=== PATIENT | female | born 1980 | race Caucasian/White ===

== ENCOUNTER 2018-08-04 16:01 | Emergency (ER) | payer MEDICAID ==
[2018-08-04 17:03] LABS: URINE SOURCE CLEAN C
[2018-08-04 17:09] LABS: URINE BILIRUBIN NEGATIVE (NEGATIVE); URINE BLOOD LARGE (NEGATIVE); URINE GLUCOSE (UA) NEGATIVE (NEGATIVE); URINE KETONE NEGATIVE (NEGATIVE); URINE LEUKOCYTE ESTERASE NEGATIVE (NEGATIVE); URINE MICROSCOPIC INDICATED? YES; URINE NITRATE NEGATIVE (NEGATIVE); URINE PH 5.5 (4.6 - 8.0); URINE PROTEIN NEGATIVE (NEGATIVE); URINE UROBILINOGEN 0.2 E.U./dL (0.2 - 1.0)
[2018-08-04 17:12] LABS: URINE CLARITY HAZY (CLEAR); URINE COLOR YELLOW
[2018-08-04 17:13] LABS: URINE BACTERIA 3+ /hpf (NONE SEEN); URINE EPITHELIAL CELLS MODERATE /lpf (FEW); URINE WBC 0-2 /hpf (0-5)
[2018-08-04 17:27] LABS: HEMATOCRIT 37.8 % (41.0-60); HEMOGLOBIN 12.7 gm/dL (12-16); LYMPHOCYTE ABSOLUTE 0.7 Th/cmm (1.5-3.0); MEAN CELL VOLUME 95.9 fl (81-100); MEAN CORPUSCULAR HEMOGLOBIN 32.3 pg (27.0-31.0); MEAN CORPUSCULAR HGB CONC 33.6 pg (28.0-36.0); MEAN PLATELET VOLUME 9.3 fl; MONOCYTE ABSOLUTE 0.6 Th/cmm (0.3-1.0); NEUTROPHILE ABSOLUTE 1.5 Th/cmm (1.8-8.0); PLATELET COUNT 119 Th/cmm (150-400); RED BLOOD COUNT 3.94 Mil/cmm (3.80-5.10); RED CELL DISTRIBUTION WIDTH 12.1 % (11.5-20.0)
[2018-08-04 17:40] LABS: WHITE BLOOD COUNT 2.8 Th/cmm (4.8-10.8)
[2018-08-04 17:43] LABS: ALB/GLOB RATIO 1.5 (1.0-1.8); ALBUMIN 4.3 gm/dL (3.7-5.3); ALKALINE PHOSPHATASE 31 U/L (34-104); ANION GAP 10.7 (7.0-16.0); BILIRUBIN,TOTAL 0.3 mg/dL (0.3-1.0); BUN - UREA NITROGEN 10 mg/dL (7-25); CALCIUM SERUM 9.5 mg/dL (8.6-10.3); CARBON DIOXIDE 28.2 mEq/L (21.0-31.0); CHLORIDE 106 mEq/L (98-107); CREATININE - SERUM 0.6 mg/dL (0.6-1.2); GFR AFRICAN-AMERICAN > 60.0 ml/min (>90); GFR NON AFRICAN-AMERICAN > 60.0 ml/min; GLUCOSE 65 mg/dL (70-105); POTASSIUM SERUM 3.9 mEq/L (3.5-5.1); SGOT 15 U/L (13-39); SGPT/ALT 12 U/L (7-52); SODIUM SERUM 141 mEq/L (136-145); TOTAL PROTEIN,SERUM 7.2 gm/dL (6.0-8.3)
[2018-08-04] MEDS: Lactated Ringer 1,000 ML IV ONE (17:48)
[2018-08-04 18:07] LABS: BAND NEUTROPHILE 3 % (0-10); LYMPHOCYTE 25 % (20-50); MONOCYTE 15 % (2-10); NEUTROPHILS 57 % (40-80)
--- NOTE | 2018-08-04 19:55 | ED Physician Chart ---
ED Chief Complaint/HPI - Patient Information Date Seen:: 08/04/18 Time Seen:: 16:26 Chief Complaint:: pelvic & lower abd pain History of Present Illness:: pelvic & lower abd pain in a patient who was told to follow up with a refrigerator mover and never did. No N, V, D, C. No abnormal vaginal bleeding. Allergies:: Allergies Allergy/AdvReac Type Severity Reaction Status Date / Time amoxicillin Allergy Verified 08/04/18 16:26 Penicillins [PCN] Allergy Verified 08/04/18 16:26 Sulfa (Sulfonamide Allergy Verified 08/04/18 16:26 Antibiotics) Vitals:: Vital Signs - 8 hr 08/04/18 16:26 Temp 98.9 F HR 90 RR 18 BP 107/64 O2 Sat % 97 Historian:: Patient Review:: Nurse's Note Reviewed ED Review of Systems - Review of Systems General/Constitutional: No fever, No chills, No weight loss, No weakness, No diaphoresis, No edema, No loss of appetite Skin: No skin lesions, No rash, No bruising Head: No headache, No light-headedness Eyes: No loss of vision, No pain, No diplopia ENT: No earache, No nasal drainage, No sore throat, No tinnitus Neck: No neck pain, No swelling, No thyromegaly, No stiffness, No mass noted Cardio Vascular: No chest pain, No palpitations, No PND, No orthopnea, No edema Pulmonary: No SOB, No cough, No sputum, No wheezing GI: No nausea, No vomiting, No diarrhea, Pain, No melena, No hematochezia, No constipation, No hematemesis G/U: No dysuria, No frequency, No hematuria Rd Lab Technician: No vaginal discharge, No abnormal vaginal bleed, No contraction Musculoskeletal: No bone or joint pain, No back pain, No muscle pain Endocrine: No polyuria, No polydipsia Psychiatric: No prior psych history, No depression, No anxiety, No suicidal ideation Hematopoietic: No bruising, No lymphadenopathy, Other (low white blood count ( has a events traffic controller)) Allergic/Immuno: No urticaria, No angioedema Neurological: No syncope, No focal symptoms, No weakness, No paresthesia, No headache, No seizure, No dizziness, No confusion, No vertigo ED Past Medical History - Past Medical History Obtainable: Yes Past Medical History: Other (low white blood count) Family Medical History - Family Member Father Hx Family Hypertension: Yes ED Physical Exam - Physical Examination General/Constitutional: Awake, Well-developed, well-nourished, Alert, No distress, GCS 15, Non-toxic appearing, Ambulatory Head: Atraumatic Eyes: Lids, conjuctiva normal, PERRL, EOMI Skin: Nl inspection, No rash, No skin lesions, No ecchymosis, Well hydrated, No lymphadenopathy ENMT: External ears, nose nl, Nasal exam nl, Lips, teeth, gums nl Neck: Nontender, Full ROM w/o pain, No JVD, No nuchal rigidity, No bruit, No mass, No stridor Respiratory: Nl effort/Exclusion, Clear to Auscultation, No Wheeze/Rhonchi/Rales Cardio Vascular: RRR, No murmur, gallop, rubs, NL S1 S2 GI: No organomegaly, No hernia, Normal BS's, Nondistended, No mass/bruits, No McBurney tenderness Other GI comments:: Possible mass felt in the RLQ. No peritoneal signs. Negative Rovsing's and Psoas sign. : No CVA tenderness Extremities: No tenderness or effusion, Full ROM, normal strength in all extremities, No edema, Normal digits & nails Neuro/Psych: Alert/oriented, Normal sensory exam, Normal motor strength, Judgement/insight normal, Mood normal, Normal gait, No focal deficits Misc: Normal back, No paraspinal tenderness ED Labs/Radiology/EKG Results - Lab Results Results: Laboratory Tests 08/04/18 08/04/18 08/04/18 16:25 16:48 17:10 WBC 2.8 L RBC 3.94 Hgb 12.7 Hct 37.8 L MCV 95.9 MCH 32.3 H MCHC Differential 33.6 RDW 12.1 Plt Count 119 L MPV 9.3 Add Manual Diff YES Band Neutrophils % 3 Neutrophils (Manual) 57 Lymphocytes 25 Monocytes 15 H Sodium Potassium Chloride Carbon Dioxide Anion Gap BUN Creatinine Est GFR ( Amer) Est GFR (Non-Af Amer) BUN/Creatinine Ratio Glucose Whole Bld Lactic Acid Calcium Total Bilirubin AST ALT Alkaline Phosphatase Total Protein Albumin Globulin Albumin/Globulin Ratio Urine Source CLEAN C Urine Color YELLOW Urine Clarity HAZY Urine pH 5.5 Ur Specific Falcon >= 1.030 Urine Protein NEGATIVE Urine Glucose (UA) NEGATIVE Urine Ketones NEGATIVE Urine Blood LARGE H Urine Nitrate NEGATIVE Urine Bilirubin NEGATIVE Urine Urobilinogen 0.2 Ur Leukocyte Esterase NEGATIVE Urine RBC 2-5 Urine WBC 0-2 Ur Epithelial Cells MODERATE Urine Bacteria 3+ H POC Ur Test Negative 08/04/18 08/04/18 17:10 17:10 WBC RBC Hgb Hct MCV MCH MCHC Differential RDW Plt Count MPV Add Manual Diff Band Neutrophils % Neutrophils (Manual) Lymphocytes Monocytes Sodium 141 Potassium 3.9 Chloride 106 Carbon Dioxide 28.2 Anion Gap 10.7 BUN 10 Creatinine 0.6 Est GFR ( Amer) > 60.0 Est GFR (Non-Af Amer) > 60.0 BUN/Creatinine Ratio 16.7 Glucose 65 L Whole Bld Lactic Acid 1.36 Calcium 9.5 Total Bilirubin 0.3 AST 15 ALT 12 Alkaline Phosphatase 31 L Total Protein 7.2 Albumin 4.3 Globulin 2.9 Albumin/Globulin Ratio 1.5 Urine Source Urine Color Urine Clarity Urine pH Ur Specific Falcon Urine Protein Urine Glucose (UA) Urine Ketones Urine Blood Urine Nitrate Urine Bilirubin Urine Urobilinogen Ur Leukocyte Esterase Urine RBC Urine WBC Ur Epithelial Cells Urine Bacteria POC Ur Test ED Assessment - Assessment General Assessment: ultrasound performed which revealed a right bladder diverticulum and an abnormal , thickened uterus. ED Septic Shock - . Is Septic Shock (SBP<90, OR Lactate>4 mmol\L) present?: No - <6hrs of presentation: Vital Signs: Vital Signs - 8 hr 08/04/18 16:26 Temp 98.9 F HR 90 RR 18 BP 107/64 O2 Sat % 97 ED Reassessment (Disposition) - Reassessment Reassessment Condition:: Improved - Diagnosis Diagnosis:: Abdominal pain Urinary tract infection Bladder diverticulum--need to see a urologist Hematuria--need to see a urologist Abnormal, thickened endometrium--need to see a refrigerator mover Low white blood count--need to see your events traffic controller. - Aftercare/Follow up Instructions Aftercare/Follow-Up Instructions:: Refer to Discharge Instructions Notes:: Bladder diverticulum--need to see a urologist Hematuria--need to see a urologist Abnormal, thickened endometrium--need to see a refrigerator mover Low white blood count--need to see your events traffic controller. Medication Prescribed:: Tylenol # 3 # 15 CURES REPORT RUN ON PATIENT--IS NEGATIVE. WAS PLACED IN CHART. Macrobid 100 mg po bid # 20 - Patient Disposition Discharge/Transfer:: Home Condition at Disposition:: Stable, Improved
--- NOTE | 2018-08-05 09:08 | Diagnostic Imaging Report ---
Ultrasound abdomen, Limited History: Lower pelvic pain, rule out appendicitis Comparison: Pelvic ultrasound same day Technique/procedure: Limited sonographic images of the right lower quadrant were obtained. Appendix is not visualized. IMPRESSION: The appendix was not visualized. If there is continued concern for acute appendicitis, CT examination is recommended for further assessment.
--- NOTE | 2018-08-05 09:11 | Diagnostic Imaging Report ---
Ultrasound pelvis HISTORY: Right lower quadrant pain, mass. LMP 06/28/2018. Beta-hCGs negative COMPARISON: Limited abdominal ultrasound the same day Technique: Longitudinal and transverse sonographic sector images of the pelvis were obtained transabdominally and transvaginally. FINDINGS: The uterus measures 8.1 x 3.9 x 4.8 cm. The endometrial echo complex measures 1.3 cm and demonstrates vascularity. The right ovary measures 5.0 x 2.8 cm. The left ovary measures 3.0 x 2.9 cm. Vascular flow to both ovaries is noted. Bilateral ovarian follicular cystic changes are noted. No free fluid in the pelvis. Incidentally noted is a diverticulum along the base of the urinary bladder. IMPRESSION: Mild prominence of the right ovary. Vascular flow to both ovaries is noted. Bilateral ovarian follicular cystic changes. Thickened endometrial echo complex with increased vascularity. Clinical correlation and further assessment of this finding is recommended. No evidence of free fluid in the pelvis. Posterior urinary bladder diverticulum incidentally noted. Given clinical history, consider further assessment CT examination of the abdomen and pelvis.
== END 2018-08-04 20:00 | disposition home or self-care (01) ==
LOC: ER 16:01
DX: N39.0 Urinary tract infection, site not specified (principal); N32.3 Diverticulum of bladder; D72.819 Decreased white blood cell count, unspecified; R93.89 Abnormal findings on diagnostic imaging of other specified body structures; Z88.0 Allergy status to penicillin; Z88.2 Allergy status to sulfonamides
CPT/HCPCS: 36415-UA; 76705-TC; 76830-TC; 76856-TC; 76857-TC; 80053-TC; 81001-TC; 81025-TC; 83605; 85007-TC; 85025-TC; 87086-90; Z7502

== ENCOUNTER 2018-11-03 10:20 | Emergency (ER) | payer MEDICAID ==
--- NOTE | 2018-11-03 10:58 | ED Physician Chart ---
ED Chief Complaint/HPI - Patient Information Date Seen:: 11/03/18 Time Seen:: 10:53 Chief Complaint:: rash History of Present Illness:: this is a 38 yo female with recurrent rash seen here twice before with the same rash over the head and shoulder. she denies fever, cough and chest congestion. she denies any recent new exposure to pets of food. Allergies:: Allergies Allergy/AdvReac Type Severity Reaction Status Date / Time amoxicillin Allergy Verified 10/15/18 08:59 Penicillins [PCN] Allergy Verified 10/15/18 08:59 Sulfa (Sulfonamide Allergy Verified 10/15/18 08:59 Antibiotics) Vitals:: Vital Signs - 8 hr 11/03/18 10:31 Temp 98.1 F HR 86 RR 16 BP 123/79 O2 Sat % 99 Historian:: Patient Review:: Nurse's Note Reviewed, Old Chart Reviewed ED Review of Systems - Review of Systems General/Constitutional: No fever, No chills, No weight loss, No weakness, No diaphoresis, No edema, No loss of appetite Skin: No skin lesions, Rash, No bruising Head: No headache, No light-headedness Eyes: No loss of vision, No pain, No diplopia ENT: No earache, No nasal drainage, No sore throat, No tinnitus Neck: No neck pain, No swelling, No thyromegaly, No stiffness, No mass noted Cardio Vascular: No chest pain, No palpitations, No PND, No orthopnea, No edema Pulmonary: No SOB, No cough, No sputum, No wheezing GI: No nausea, No vomiting, No diarrhea, No pain, No melena, No hematochezia, No constipation, No hematemesis G/U: No dysuria, No frequency, No hematuria Musculoskeletal: No bone or joint pain, No back pain, No muscle pain Endocrine: No polyuria, No polydipsia Psychiatric: No prior psych history, No depression, No anxiety, No suicidal ideation Hematopoietic: No bruising, No lymphadenopathy Allergic/Immuno: No urticaria, No angioedema Neurological: No syncope, No focal symptoms, No weakness, No paresthesia, No headache, No seizure, No dizziness, No confusion, No vertigo ED Past Medical History - Past Medical History Obtainable: Yes Past Medical History: No significant medical hx Family History: None Social History: Non Smoker, No Alcohol, No Drug Use, Employed Surgical History: other (EAR TUBE SURGERY, NOSE SURGERY) Psychiatricy History: None Family Medical History - Family Member Father History Unknown: Yes Hx Family Hypertension: Yes ED Physical Exam - Physical Examination General/Constitutional: Awake, Well-developed, well-nourished, Alert, No distress, GCS 15, Non-toxic appearing, Ambulatory Head: Atraumatic Eyes: Lids, conjuctiva normal, PERRL, EOMI Skin: Nl inspection, No rash (THERE IS A RASH OVER THE HEAD AND SHOULDERS ), No ecchymosis, Well hydrated, No lymphadenopathy Other Skin comments:: RASH OVER THE HEAD, SCALP AND SHOULDERS. ENMT: External ears, nose nl, Nasal exam nl, Lips, teeth, gums nl Neck: Nontender, Full ROM w/o pain, No JVD, No nuchal rigidity, No bruit, No mass, No stridor Respiratory: Nl effort/Exclusion, Clear to Auscultation, No Wheeze/Rhonchi/Rales Cardio Vascular: RRR, No murmur, gallop, rubs, NL S1 S2 GI: No tenderness/rebounding/guarding, No organomegaly, No hernia, Normal BS's, Nondistended, No mass/bruits, No McBurney tenderness : No CVA tenderness Extremities: No tenderness or effusion, Full ROM, normal strength in all extremities, No edema, Normal digits & nails Neuro/Psych: Alert/oriented, DTR's symmetric, Normal sensory exam, Normal motor strength, Judgement/insight normal, Mood normal, Normal gait, No focal deficits Misc: Normal back, No paraspinal tenderness ED Assessment - Assessment General Assessment: SCABIES- LIKE RASH OVER THE HEAD AND SHOULDERS ED Septic Shock - . Is Septic Shock (SBP<90, OR Lactate>4 mmol\L) present?: No - <6hrs of presentation: Vital Signs: Vital Signs - 8 hr 11/03/18 10:31 Temp 98.1 F HR 86 RR 16 BP 123/79 O2 Sat % 99 ED Reassessment (Disposition) - Reassessment Reassessment Condition:: Unchanged - Diagnosis Diagnosis:: RASH (SCABIES) - Aftercare/Follow up Instructions Aftercare/Follow-Up Instructions:: Counseled pt regarding lab results/diagnosis & need follow up, Refer to Discharge Instructions, Counseled pt & family regarding lab results/diagnosis & need follow up - Patient Disposition Discharge/Transfer:: Home Condition at Disposition:: Unchanged
== END 2018-11-03 11:36 | disposition home or self-care (01) ==
LOC: ER 10:20
DX: B86 Scabies (principal); R21 Rash and other nonspecific skin eruption; Z88.0 Allergy status to penicillin; Z88.2 Allergy status to sulfonamides
CPT/HCPCS: Z7502

== ENCOUNTER 2019-02-20 12:26 | Emergency (ER) | payer MEDICAID ==
--- NOTE | 2019-02-20 13:13 | ED Physician Chart ---
ED Chief Complaint/HPI - Patient Information Date Seen:: 02/20/19 Time Seen:: 12:55 Chief Complaint:: hand rash History of Present Illness:: this is a 38 yo female who is concerned about a new rash on her fingers that started 3 days ago. she denies rashes elsewhere on her body. she denies diabetes, hypertension and heart disease. Allergies:: Allergies Allergy/AdvReac Type Severity Reaction Status Date / Time amoxicillin Allergy Verified 10/15/18 08:59 Penicillins [PCN] Allergy Verified 10/15/18 08:59 Sulfa (Sulfonamide Allergy Verified 10/15/18 08:59 Antibiotics) Vitals:: Vital Signs - 8 hr 02/20/19 12:45 Temp 98.5 F HR 84 RR 18 BP 105/52 O2 Sat % 98 Historian:: Patient Review:: Nurse's Note Reviewed ED Review of Systems - Review of Systems General/Constitutional: No fever, No chills, No weight loss, No weakness, No diaphoresis, No edema, No loss of appetite Skin: Skin lesions (rash on the fingers of both hands), No skin lesions, No rash , No bruising Head: No headache, No light-headedness Eyes: No loss of vision, No pain, No diplopia ENT: No earache, No nasal drainage, No sore throat, No tinnitus Neck: No neck pain, No swelling, No thyromegaly, No stiffness, No mass noted Cardio Vascular: No chest pain, No palpitations, No PND, No orthopnea, No edema Pulmonary: No SOB, No cough, No sputum, No wheezing GI: No nausea, No vomiting, No diarrhea, No pain, No melena, No hematochezia, No constipation, No hematemesis G/U: No dysuria, No frequency, No hematuria Musculoskeletal: No bone or joint pain, No back pain, No muscle pain Endocrine: No polyuria, No polydipsia Psychiatric: No prior psych history, No depression, No anxiety, No suicidal ideation Hematopoietic: No bruising, No lymphadenopathy Allergic/Immuno: No urticaria, No angioedema Neurological: No syncope, No focal symptoms, No weakness, No paresthesia, No headache, No seizure, No dizziness, No confusion, No vertigo ED Past Medical History - Past Medical History Obtainable: Yes Past Medical History: No significant medical hx Family History: None Social History: Non Smoker, No Alcohol, No Drug Use, Employed Surgical History: None Psychiatricy History: None Medication: Reviewed Family Medical History - Family Member Father History Unknown: Yes Hx Family Hypertension: Yes ED Physical Exam - Physical Examination General/Constitutional: Awake, Well-developed, well-nourished, Alert, No distress, GCS 15, Non-toxic appearing, Ambulatory Head: Atraumatic Eyes: Lids, conjuctiva normal, PERRL, EOMI Skin: Nl inspection, No skin lesions, No ecchymosis, Well hydrated, No lymphadenopathy Other Skin comments:: rash on both hands on the fingers ENMT: External ears, nose nl, Nasal exam nl, Lips, teeth, gums nl Neck: Nontender, Full ROM w/o pain, No JVD, No nuchal rigidity, No bruit, No mass, No stridor Respiratory: Nl effort/Exclusion, Clear to Auscultation, No Wheeze/Rhonchi/Rales Cardio Vascular: RRR, No murmur, gallop, rubs, NL S1 S2 GI: No tenderness/rebounding/guarding, No organomegaly, No hernia, Normal BS's, Nondistended, No mass/bruits, No McBurney tenderness : No CVA tenderness Extremities: No tenderness or effusion, Full ROM, normal strength in all extremities, No edema, Normal digits & nails Neuro/Psych: Alert/oriented, DTR's symmetric, Normal sensory exam, Normal motor strength, Judgement/insight normal, Mood normal, Normal gait, No focal deficits Misc: Normal back, No paraspinal tenderness ED Assessment - Assessment General Assessment: fungal infection ED Septic Shock - . Is Septic Shock (SBP<90, OR Lactate>4 mmol\L) present?: No - <6hrs of presentation: Vital Signs: Vital Signs - 8 hr 02/20/19 12:45 Temp 98.5 F HR 84 RR 18 BP 105/52 O2 Sat % 98 ED Reassessment (Disposition) - Reassessment Reassessment Condition:: Unchanged - Diagnosis Diagnosis:: fungal infection of both hands - Aftercare/Follow up Instructions Aftercare/Follow-Up Instructions:: Counseled pt regarding lab results/diagnosis & need follow up, Refer to Discharge Instructions, Counseled pt & family regarding lab results/diagnosis & need follow up - Patient Disposition Discharge/Transfer:: Home Condition at Disposition:: Unchanged
== END 2019-02-20 13:30 | disposition home or self-care (01) ==
LOC: ER 12:26
DX: B35.2 Tinea manuum (principal); Z88.0 Allergy status to penicillin; Z88.1 Allergy status to other antibiotic agents; Z88.2 Allergy status to sulfonamides
CPT/HCPCS: Z7502

== ENCOUNTER 2019-03-05 14:00 | Emergency (ER) | payer MEDICAID ==
--- NOTE | 2019-03-05 14:39 | ED Physician Chart ---
ED Chief Complaint/HPI - Patient Information Date Seen:: 03/05/19 Time Seen:: 14:25 Chief Complaint:: sore throat History of Present Illness:: Patient's had sore throat, hoarseness and shortness of breath for 3 days. She also has diffuse abdominal pain. No vomiting. Has bilateral flank pain when she urinates. Allergies:: Allergies Allergy/AdvReac Type Severity Reaction Status Date / Time amoxicillin Allergy Verified 03/05/19 14:16 Penicillins [PCN] Allergy Verified 03/05/19 14:16 Sulfa (Sulfonamide Allergy Verified 03/05/19 14:16 Antibiotics) Vitals:: Vital Signs - 8 hr 03/05/19 14:17 Temp 98.8 F HR 84 RR 18 BP 107/63 O2 Sat % 98 Historian:: Patient Review:: Nurse's Note Reviewed ED Review of Systems - Review of Systems General/Constitutional: No fever, No chills Skin: No skin lesions Head: No headache Eyes: No loss of vision ENT: No earache, Sore throat Neck: No neck pain, No swelling Cardio Vascular: No chest pain Pulmonary: No SOB GI: No nausea, No vomiting, Pain G/U: Dysuria, Other (bilateral flank pain when she urinates) Musculoskeletal: No bone or joint pain Endocrine: No polyuria, No polydipsia Psychiatric: No prior psych history ED Past Medical History - Past Medical History Past Medical History: Other (anemia; patient was born prematurely. She is unsure of her weight. She had surgery as a baby for vomiting (? pyloric stenosis)) Family History: Cancer Social History: Smoker, No Alcohol, Other (smokes one cigaret per day) Surgical History: other (Probably) Psychiatricy History: None Family Medical History - Family Member Father History Unknown: Yes Hx Family Hypertension: Yes ED Physical Exam - Physical Examination General/Constitutional: Well-developed, well-nourished, Alert, No distress Head: Atraumatic Eyes: Lids, conjuctiva normal, PERRL Skin: Nl inspection, No rash, No skin lesions, No ecchymosis, Well hydrated, No lymphadenopathy ENMT: External ears, nose nl, TM canals nl, Nasal exam nl, Lips, teeth, gums nl , Oropharynx nl, Tonsils nl Other ENMT comments:: Normal Neck: No nuchal rigidity Respiratory: Nl effort/Exclusion, Clear to Auscultation Cardio Vascular: RRR, No murmur, gallop, rubs, NL S1 S2 GI: No organomegaly, No hernia, Normal BS's, Nondistended, No mass/bruits, No McBurney tenderness Other GI comments:: Diffuse abdominal tenderness Extremities: Normal digits & nails Neuro/Psych: No focal deficits Misc: No paraspinal tenderness ED Labs/Radiology/EKG Results - Lab Results Results: Laboratory Results WBC 2.2 Th/cmm (4.8-10.8) L* 03/05/19 14:45 RBC 4.03 Mil/cmm (3.80-5.10) 03/05/19 14:45 Hgb 13.1 gm/dL (12-16) 03/05/19 14:45 Hct 38.3 % (41.0-60) L 03/05/19 14:45 MCV 95.3 fl (81-100) 03/05/19 14:45 MCH 32.5 pg (27.0-31.0) H 03/05/19 14:45 MCHC Differential 34.2 pg (28.0-36.0) 03/05/19 14:45 RDW 11.8 % (11.5-20.0) 03/05/19 14:45 Plt Count 95 Th/cmm (150-400) L 03/05/19 14:45 MPV 9.1 fl 03/05/19 14:45 Add Manual Diff YES 03/05/19 14:45 Laboratory Results WBC 2.2 Th/cmm (4.8-10.8) L* 03/05/19 14:45 RBC 4.03 Mil/cmm (3.80-5.10) 03/05/19 14:45 Hgb 13.1 gm/dL (12-16) 03/05/19 14:45 Hct 38.3 % (41.0-60) L 03/05/19 14:45 MCV 95.3 fl (81-100) 03/05/19 14:45 MCH 32.5 pg (27.0-31.0) H 03/05/19 14:45 MCHC Differential 34.2 pg (28.0-36.0) 03/05/19 14:45 RDW 11.8 % (11.5-20.0) 03/05/19 14:45 Plt Count 95 Th/cmm (150-400) L 03/05/19 14:45 MPV 9.1 fl 03/05/19 14:45 Add Manual Diff YES 03/05/19 14:45 Band Neutrophils % 0 % (0-10) 03/05/19 14:45 Neutrophils (Manual) 50 % (40-80) 03/05/19 14:45 Lymphocytes 32 % (20-50) 03/05/19 14:45 Monocytes 18 % (2-10) H 03/05/19 14:45 Eosinophils 0 % (0-5) 03/05/19 14:45 Basophils 0 % (0-3) 03/05/19 14:45 Platelet Estimate SLIGHT DECREASED (NORMAL) 03/05/19 14:45 Whole Bld Lactic Acid 1.43 mmol/L (0.60-1.99) 03/05/19 14:45 ED Assessment - Assessment General Assessment: Patient appears to have viral pharyngitis as her throat examination is normal and influenza A and B screen are negative. At about 1630 she complained of 5 out of 10 diffuse abdominal pain. Her abdominal pain appears to be nonspecific. To be given one tablet in the emergency department before discharge and prescribed 12 to take one three times a day. ED Septic Shock - . Is Septic Shock (SBP<90, OR Lactate>4 mmol\L) present?: No - <6hrs of presentation: Vital Signs: Vital Signs - 8 hr 03/05/19 14:17 Temp 98.8 F HR 84 RR 18 BP 107/63 O2 Sat % 98 ED Reassessment (Disposition) - Reassessment Reassessment Condition:: Unchanged - Diagnosis Diagnosis:: Viral pharyngitis; nonspecific abdominal pain; leukopenia; thrombocytopenia - Aftercare/Follow up Instructions Medication Prescribed:: No. 12 to take 1 3 times a day - Patient Disposition Discharge/Transfer:: Home Condition at Disposition:: Stable, Unchanged
[2019-03-05 14:50] LABS: HEMATOCRIT 38.3 % (41.0-60); HEMOGLOBIN 13.1 gm/dL (12-16); LYMPHOCYTE ABSOLUTE 0.7 Th/cmm (1.5-3.0); MEAN CELL VOLUME 95.3 fl (81-100); MEAN CORPUSCULAR HEMOGLOBIN 32.5 pg (27.0-31.0); MEAN CORPUSCULAR HGB CONC 34.2 pg (28.0-36.0); MONOCYTE ABSOLUTE 0.4 Th/cmm (0.3-1.0); NEUTROPHILE ABSOLUTE 1.1 Th/cmm (1.8-8.0); PLATELET COUNT 95 Th/cmm (150-400); RED BLOOD COUNT 4.03 Mil/cmm (3.80-5.10); RED CELL DISTRIBUTION WIDTH 11.8 % (11.5-20.0)
[2019-03-05] MEDS ORDERED: Albuterol Nebulizer 2.5mg/3mL HHN STA (14:55)
[2019-03-05 14:59] LABS: WHITE BLOOD COUNT 2.2 Th/cmm (4.8-10.8)
[2019-03-05] MEDS ORDERED: Albuterol Nebulizer 2.5mg/3mL HHN ONE (15:07)
[2019-03-05 15:48] LABS: BAND NEUTROPHILE 0 % (0-10); LYMPHOCYTE 32 % (20-50); NEUTROPHILS 50 % (40-80)
[2019-03-05 15:49] LABS: BASOPHIL 0 % (0-3); EOSINOPHIL 0 % (0-5); MONOCYTE 18 % (2-10)
[2019-03-05 15:52] LABS: PLATELET ESTIMATE SLIGHT DECREASED (NORMAL)
[2019-03-05 16:00] LABS: URINE SOURCE CLEAN C
[2019-03-05 16:03] LABS: URINE BILIRUBIN NEGATIVE (NEGATIVE); URINE BLOOD NEGATIVE (NEGATIVE); URINE GLUCOSE (UA) NEGATIVE (NEGATIVE); URINE KETONE NEGATIVE (NEGATIVE); URINE LEUKOCYTE ESTERASE NEGATIVE (NEGATIVE); URINE NITRATE NEGATIVE (NEGATIVE); URINE PROTEIN NEGATIVE (NEGATIVE); URINE UROBILINOGEN 0.2 E.U./dL (0.2 - 1.0)
[2019-03-05 16:14] LABS: URINE CLARITY CLEAR (CLEAR); URINE COLOR YELLOW; URINE MICROSCOPIC INDICATED? YES
[2019-03-05 16:15] LABS: URINE BACTERIA FEW /hpf (NONE SEEN); URINE EPITHELIAL CELLS FEW /lpf (FEW); URINE RBC 0-2 /hpf (0-5); URINE WBC 0-2 /hpf (0-5)
[2019-03-05 16:26] LABS: INF A SCREEN NEG FOR INF A; INF B SCREEN NEG FOR INF B
== END 2019-03-05 16:50 | disposition home or self-care (01) ==
LOC: ER 14:00
DX: J02.8 Acute pharyngitis due to other specified organisms (principal); B97.89 Other viral agents as the cause of diseases classified elsewhere; R10.84 Generalized abdominal pain; D69.6 Thrombocytopenia, unspecified; D72.819 Decreased white blood cell count, unspecified; F17.210 Nicotine dependence, cigarettes, uncomplicated; Z88.0 Allergy status to penicillin; Z88.1 Allergy status to other antibiotic agents; Z88.2 Allergy status to sulfonamides
CPT/HCPCS: 36415-UA; 81001-TC; 81025-TC; 83605; 85007-TC; 85025-TC; 87804-TC; 94640; J7613; Z7502

== ENCOUNTER 2019-04-11 14:30 | Emergency (ER) | payer MEDICAID ==
--- NOTE | 2019-04-11 14:58 | ED Physician Chart ---
ED Chief Complaint/HPI - Patient Information Date Seen:: 04/11/19 Time Seen:: 14:53 Chief Complaint:: rash History of Present Illness:: this is a 38 yo female here with complaints of a rash of the upper body and vaginal itching. she has been on clindamycin but has not got better. Allergies:: Allergies Allergy/AdvReac Type Severity Reaction Status Date / Time amoxicillin Allergy Verified 04/11/19 14:41 Influenza Virus Vaccines Allergy Verified 04/11/19 14:41 Penicillins [PCN] Allergy Verified 04/11/19 14:41 Sulfa (Sulfonamide Allergy Verified 04/11/19 14:41 Antibiotics) Vitals:: Vital Signs - 8 hr 04/11/19 14:41 Temp 98.9 F HR 90 RR 18 BP 101/67 O2 Sat % 100 Historian:: Patient Review:: Nurse's Note Reviewed ED Review of Systems - Review of Systems General/Constitutional: No fever, No chills, No weight loss, No weakness, No diaphoresis, No edema, No loss of appetite Skin: No skin lesions, Rash, No bruising Head: No headache, No light-headedness Eyes: No loss of vision, No pain, No diplopia ENT: No earache, No nasal drainage, No sore throat, No tinnitus Neck: No neck pain, No swelling, No thyromegaly, No stiffness, No mass noted Cardio Vascular: No chest pain, No palpitations, No PND, No orthopnea, No edema Pulmonary: No SOB, No cough, No sputum, No wheezing GI: No nausea, No vomiting, No diarrhea, No pain, No melena, No hematochezia, No constipation, No hematemesis G/U: No dysuria, No frequency, No hematuria Musculoskeletal: No bone or joint pain, No back pain, No muscle pain Endocrine: No polyuria, No polydipsia Psychiatric: No prior psych history, No depression, No anxiety, No suicidal ideation Hematopoietic: No bruising, No lymphadenopathy Allergic/Immuno: No urticaria, No angioedema Neurological: No syncope, No focal symptoms, No weakness, No paresthesia, No headache, No seizure, No dizziness, No confusion, No vertigo ED Past Medical History - Past Medical History Obtainable: Yes Past Medical History: Other (low wbc count) Family History: None Social History: Non Smoker, No Alcohol, No Drug Use, Employed Surgical History: other (rhinoplasty and abdominal surgery.) Family Medical History - Family Member Father History Unknown: Yes Hx Family Hypertension: Yes ED Physical Exam - Physical Examination General/Constitutional: Awake, Well-developed, well-nourished, Alert, No distress, GCS 15, Non-toxic appearing, Ambulatory Head: Atraumatic Eyes: Lids, conjuctiva normal, PERRL, EOMI Skin: Nl inspection, No rash (there is a fungal rash over the upper trunk front and back.), No skin lesions, No ecchymosis, Well hydrated, No lymphadenopathy ENMT: External ears, nose nl, Nasal exam nl, Lips, teeth, gums nl Neck: Nontender, Full ROM w/o pain, No JVD, No nuchal rigidity, No bruit, No mass, No stridor Respiratory: Nl effort/Exclusion, Clear to Auscultation, No Wheeze/Rhonchi/Rales Cardio Vascular: RRR, No murmur, gallop, rubs, NL S1 S2 GI: No tenderness/rebounding/guarding, No organomegaly, No hernia, Normal BS's, Nondistended, No mass/bruits, No McBurney tenderness : No CVA tenderness Extremities: No tenderness or effusion, Full ROM, normal strength in all extremities, No edema, Normal digits & nails Neuro/Psych: Alert/oriented, DTR's symmetric, Normal sensory exam, Normal motor strength, Judgement/insight normal, Mood normal, Normal gait, No focal deficits Misc: Normal back, No paraspinal tenderness ED Assessment - Assessment General Assessment: fungal rash ED Septic Shock - . Is Septic Shock (SBP<90, OR Lactate>4 mmol\L) present?: No - <6hrs of presentation: Vital Signs: Vital Signs - 8 hr 04/11/19 14:41 Temp 98.9 F HR 90 RR 18 BP 101/67 O2 Sat % 100 ED Reassessment (Disposition) - Reassessment Reassessment Condition:: Unchanged - Diagnosis Diagnosis:: fungal rash - Aftercare/Follow up Instructions Aftercare/Follow-Up Instructions:: Counseled pt regarding lab results/diagnosis & need follow up, Refer to Discharge Instructions, Counseled pt & family regarding lab results/diagnosis & need follow up - Patient Disposition Discharge/Transfer:: Home Condition at Disposition:: Unchanged
== END 2019-04-11 15:03 | disposition home or self-care (01) ==
LOC: ER 14:30
DX: B49 Unspecified mycosis (principal); Z88.0 Allergy status to penicillin; Z88.1 Allergy status to other antibiotic agents; Z88.2 Allergy status to sulfonamides; Z88.7 Allergy status to serum and vaccine
CPT/HCPCS: Z7502

== ENCOUNTER 2019-04-30 13:57 | Emergency (ER) | payer MEDICAID ==
--- NOTE | 2019-04-30 14:24 | ED Physician Chart ---
ED Chief Complaint/HPI - Patient Information Date Seen:: 04/30/19 Time Seen:: 14:10 Chief Complaint:: pruritic rash History of Present Illness:: Patient has a pruritic rash on her scalp and torso and extremities for more than one month. Patient keeps insisting she has ringworm. Patient lives with 3 other family members who are not similarly affected. Allergies:: Allergies Allergy/AdvReac Type Severity Reaction Status Date / Time amoxicillin Allergy Verified 04/11/19 14:41 Influenza Virus Vaccines Allergy Verified 04/11/19 14:41 Penicillins [PCN] Allergy Verified 04/11/19 14:41 Sulfa (Sulfonamide Allergy Verified 04/11/19 14:41 Antibiotics) Historian:: Patient Review:: Nurse's Note Reviewed ED Review of Systems - Review of Systems General/Constitutional: No fever, No chills, No weight loss, No weakness, No diaphoresis, No edema, No loss of appetite Skin: Skin lesions Head: No headache Eyes: No loss of vision, No pain, No diplopia ENT: No earache, No nasal drainage, No sore throat, No tinnitus Neck: No neck pain, No swelling, No thyromegaly, No stiffness, No mass noted Pulmonary: No SOB, No cough, No sputum, No wheezing GI: No nausea, No vomiting, No diarrhea, No pain, No melena, No hematochezia, No constipation, No hematemesis Musculoskeletal: No bone or joint pain, No back pain, No muscle pain Endocrine: No polyuria, No polydipsia Psychiatric: No prior psych history Hematopoietic: No bruising, No lymphadenopathy ED Past Medical History - Past Medical History Past Medical History: Other (leukopenia) Social History: Lives With Parents Surgical History: other (laparotomy; nose; myringotomy tubes; abscess over sacrum/coccyx) Psychiatricy History: None Medication: Reviewed Family Medical History - Family Member Father History Unknown: Yes Living Status: Hx Family Hypertension: Yes Hx Family Stroke: Yes ED Physical Exam - Physical Examination General/Constitutional: Awake, Well-developed, well-nourished, Alert, No distress, GCS 15, Non-toxic appearing, Ambulatory Head: Atraumatic Eyes: Lids, conjuctiva normal, PERRL, EOMI Other Skin comments:: Slight maculopapular rash on torso and extremities; face scalp and neck no lesions; no tinea noted anywhere ENMT: External ears, nose nl Neck: No nuchal rigidity, No mass Respiratory: Nl effort/Exclusion, Clear to Auscultation Cardio Vascular: RRR, No murmur, gallop, rubs GI: No organomegaly, Normal BS's Extremities: Normal digits & nails Neuro/Psych: No focal deficits Misc: No paraspinal tenderness ED Septic Shock - . Is Septic Shock (SBP<90, OR Lactate>4 mmol\L) present?: No ED Reassessment (Disposition) - Reassessment Reassessment Condition:: Unchanged - Diagnosis Diagnosis:: Probable scabies - Aftercare/Follow up Instructions Aftercare/Follow-Up Instructions:: Refer to Discharge Instructions Medication Prescribed:: Atarax 25 mg #20 to take 1 4 times a day; Elimite 60 g tube to apply per directions - Patient Disposition Discharge/Transfer:: Home Condition at Disposition:: Stable, Improved
== END 2019-04-30 14:32 | disposition home or self-care (01) ==
LOC: ER 13:57
DX: R21 Rash and other nonspecific skin eruption (principal); L29.9 Pruritus, unspecified; Z88.0 Allergy status to penicillin; Z88.1 Allergy status to other antibiotic agents; Z88.2 Allergy status to sulfonamides; Z88.7 Allergy status to serum and vaccine
CPT/HCPCS: Z7502

== ENCOUNTER 2019-05-23 18:34 | Emergency (ER) | payer MEDICAID ==
--- NOTE | 2019-05-23 18:41 | ED Physician Chart ---
ED Chief Complaint/HPI - Patient Information Date Seen:: 05/23/19 Time Seen:: 18:41 Chief Complaint:: vomiting History of Present Illness:: this is a 39 yo female who is concerned about having lots of nausea with vomiting during the night. she also states that her body has been warm. she denies having head pain, chest pain and abdominal pain. she denies taking any meds on a regular basis. she thinks that she must have eaten something wrong yesterday. Allergies:: Allergies Allergy/AdvReac Type Severity Reaction Status Date / Time amoxicillin Allergy Verified 04/11/19 14:41 Influenza Virus Vaccines Allergy Verified 04/11/19 14:41 Penicillins [PCN] Allergy Verified 04/11/19 14:41 Sulfa (Sulfonamide Allergy Verified 04/11/19 14:41 Antibiotics) Historian:: Patient Review:: Nurse's Note Reviewed, Old Chart Reviewed ED Review of Systems - Review of Systems General/Constitutional: Fever, No chills, No weight loss, No weakness, No diaphoresis, No edema, No loss of appetite Skin: No skin lesions, No rash, No bruising Head: No headache, No light-headedness Eyes: No loss of vision, No pain, No diplopia ENT: No earache, No nasal drainage, No sore throat, No tinnitus Neck: No neck pain, No swelling, No thyromegaly, No stiffness, No mass noted Cardio Vascular: No chest pain, No palpitations, No PND, No orthopnea, No edema Pulmonary: No SOB, No cough, No sputum, No wheezing GI: Nausea, Vomiting, No diarrhea, No pain, No melena, No hematochezia, No constipation, No hematemesis G/U: No dysuria, No frequency, No hematuria Musculoskeletal: No bone or joint pain, No back pain, No muscle pain Endocrine: No polyuria, No polydipsia Psychiatric: No prior psych history, No depression, No anxiety, No suicidal ideation Hematopoietic: No bruising, No lymphadenopathy Allergic/Immuno: No urticaria, No angioedema Neurological: No syncope, No focal symptoms, No weakness, No paresthesia, No headache, No seizure, No dizziness, No confusion, No vertigo ED Past Medical History - Past Medical History Obtainable: Yes Past Medical History: PUD/GERD, Other (psych disorder) Family History: None Social History: Non Smoker, No Alcohol, No Drug Use, Single Surgical History: other ([place] surgery, abdominal surgery) Psychiatricy History: Depression, Schizophrenia Medication: Reviewed Family Medical History - Family Member Father History Unknown: Yes Living Status: Hx Family Hypertension: Yes Hx Family Stroke: Yes ED Physical Exam - Physical Examination General/Constitutional: Awake, Well-developed, well-nourished, Alert, No distress, GCS 15, Non-toxic appearing, Ambulatory Head: Atraumatic Eyes: Lids, conjuctiva normal, PERRL, EOMI Skin: Nl inspection, No rash, No skin lesions, No ecchymosis, Well hydrated, No lymphadenopathy ENMT: External ears, nose nl, Nasal exam nl, Lips, teeth, gums nl Neck: Nontender, Full ROM w/o pain, No JVD, No nuchal rigidity, No bruit, No mass, No stridor Respiratory: Nl effort/Exclusion, Clear to Auscultation, No Wheeze/Rhonchi/Rales Cardio Vascular: RRR, No murmur, gallop, rubs, NL S1 S2 GI: No tenderness/rebounding/guarding, No organomegaly, No hernia, Normal BS's, Nondistended, No mass/bruits, No McBurney tenderness : No CVA tenderness Extremities: No tenderness or effusion, Full ROM, normal strength in all extremities, No edema, Normal digits & nails Neuro/Psych: Alert/oriented, DTR's symmetric, Normal sensory exam, Normal motor strength, Judgement/insight normal, Mood normal, Normal gait, No focal deficits Misc: Normal back, No paraspinal tenderness ED Labs/Radiology/EKG Results - Lab Results Results: Abnormal Lab Results 05/23/19 05/23/19 05/23/19 18:50 18:50 18:50 WBC 2.0 L* RBC 4.10 Hgb 13.1 Hct 39.3 L MCV 95.9 MCH 32.0 H MCHC Differential 33.4 RDW 12.8 Plt Count 104 L MPV 9.2 Add Manual Diff YES Sodium 139 Potassium 3.8 Chloride 106 Carbon Dioxide 24.9 Anion Gap 11.9 BUN 6 L Creatinine 0.6 Est GFR ( Amer) > 60.0 Est GFR (Non-Af Amer) > 60.0 BUN/Creatinine Ratio 10.0 Glucose 125 H Calcium 8.9 Total Bilirubin 0.4 AST 14 ALT 11 Alkaline Phosphatase 35 Troponin I < 0.01 L Total Protein 7.6 Albumin 4.3 Globulin 3.3 Albumin/Globulin Ratio 1.3 Urine Source Urine Color Urine Clarity Urine pH Ur Specific [place] Urine Protein Urine Glucose (UA) Urine Ketones Urine Blood Urine Nitrate Urine Bilirubin Urine Urobilinogen Ur Leukocyte Esterase Urine RBC Urine WBC Ur Epithelial Cells Urine Bacteria Urine Test 05/23/19 05/23/19 19:25 19:25 WBC RBC Hgb Hct MCV MCH MCHC Differential RDW Plt Count MPV Add Manual Diff Sodium Potassium Chloride Carbon Dioxide Anion Gap BUN Creatinine Est GFR ( Amer) Est GFR (Non-Af Amer) BUN/Creatinine Ratio Glucose Calcium Total Bilirubin AST ALT Alkaline Phosphatase Troponin I Total Protein Albumin Globulin Albumin/Globulin Ratio Urine Source CLEAN C Urine Color YELLOW Urine Clarity CLEAR Urine pH 7.5 Ur Specific [place] 1.015 Urine Protein NEGATIVE Urine Glucose (UA) NEGATIVE Urine Ketones NEGATIVE Urine Blood TRACE Urine Nitrate NEGATIVE Urine Bilirubin NEGATIVE Urine Urobilinogen 0.2 Ur Leukocyte Esterase NEGATIVE Urine RBC 0-2 Urine WBC 2-5 Ur Epithelial Cells MODERATE Urine Bacteria 1+ H Urine Test NEGATIVE - Radiology Results Results: the ct scan of the abdomen and pelvis = nad ED Assessment - Assessment General Assessment: vomiting and anxiety ED Septic Shock - . Is Septic Shock (SBP<90, OR Lactate>4 mmol\L) present?: No ED Reassessment (Disposition) - Reassessment Reassessment Condition:: Unchanged - Diagnosis Diagnosis:: gastritis - Aftercare/Follow up Instructions Aftercare/Follow-Up Instructions:: Counseled pt regarding lab results/diagnosis & need follow up, Refer to Discharge Instructions, Counseled pt & family regarding lab results/diagnosis & need follow up Medication Prescribed:: gabapentin, zofran - Patient Disposition Discharge/Transfer:: Home Condition at Disposition:: Improved
[2019-05-23 19:14] LABS: HEMATOCRIT 39.3 % (41.0-60); HEMOGLOBIN 13.1 gm/dL (12-16); MEAN CELL VOLUME 95.9 fl (81-100); MEAN CORPUSCULAR HGB CONC 33.4 pg (28.0-36.0); PLATELET COUNT 104 Th/cmm (150-400); RED CELL DISTRIBUTION WIDTH 12.8 % (11.5-20.0)
[2019-05-23 19:26] LABS: ALB/GLOB RATIO 1.3 (1.0-1.8); ALBUMIN 4.3 gm/dL (3.7-5.3); ALKALINE PHOSPHATASE 35 U/L (34-104); ANION GAP 11.9 (7.0-16.0); BILIRUBIN,TOTAL 0.4 mg/dL (0.3-1.0); BUN - UREA NITROGEN 6 mg/dL (7-25); CALCIUM SERUM 8.9 mg/dL (8.6-10.3); CARBON DIOXIDE 24.9 mEq/L (21.0-31.0); CHLORIDE 106 mEq/L (98-107); CREATININE - SERUM 0.6 mg/dL (0.6-1.2); GFR AFRICAN-AMERICAN > 60.0 ml/min (>90); GFR NON AFRICAN-AMERICAN > 60.0 ml/min; GLUCOSE 125 mg/dL (70-105); POTASSIUM SERUM 3.8 mEq/L (3.5-5.1); SGOT 14 U/L (13-39); SGPT/ALT 11 U/L (7-52); SODIUM SERUM 139 mEq/L (136-145); TOTAL PROTEIN,SERUM 7.6 gm/dL (6.0-8.3)
[2019-05-23 19:45] LABS: URINE SOURCE CLEAN C
[2019-05-23 19:48] LABS: URINE BILIRUBIN NEGATIVE (NEGATIVE); URINE BLOOD TRACE (NEGATIVE); URINE GLUCOSE (UA) NEGATIVE (NEGATIVE); URINE KETONE NEGATIVE (NEGATIVE); URINE LEUKOCYTE ESTERASE NEGATIVE (NEGATIVE); URINE MICROSCOPIC INDICATED? YES; URINE NITRATE NEGATIVE (NEGATIVE); URINE PH 7.5 (4.6 - 8.0); URINE PROTEIN NEGATIVE (NEGATIVE); URINE UROBILINOGEN 0.2 E.U./dL (0.2 - 1.0)
[2019-05-23 19:49] LABS: URINE CLARITY CLEAR (CLEAR); URINE COLOR YELLOW
[2019-05-23 19:57] LABS: URINE EPITHELIAL CELLS MODERATE /lpf (FEW); URINE RBC 0-2 /hpf (0-5)
[2019-05-23 19:58] LABS: URINE BACTERIA 1+ /hpf (NONE SEEN)
[2019-05-23 20:46] LABS: LYMPHOCYTE 34 % (20-50); MONOCYTE 23 % (2-10); NEUTROPHILS 42 % (40-80)
[2019-05-23 20:47] LABS: EOSINOPHIL 1 % (0-5)
--- NOTE | 2019-05-24 09:52 | Diagnostic Imaging Report ---
Exam: CT examination abdomen pelvis HISTORY: Abdominal pain and vomiting Total DLP equals 293 CTDI equals 6.9 FINDINGS: Multiple contiguous thin section the abdomen pelvis obtained from lower thorax to pubic symphysis without administration intravenous or oral contrast material, no prior studies available comparison. The study demonstrates normal aeration of lung parenchyma the bases. There is evidence for hepatosplenomegaly. Multiple metallic clips are noted in the left adrenal area. The pancreas poorly visualized. The gallbladder is normal. The kidneys demonstrate no evidence of obstructive uropathy or nephrolithiasis. There is no evidence of diverticular disease of diverticulitis. The appendix is intact. The uterus is prominent. There is a question of a fibroid infiltration. Ultrasound examination of pelvis recommended. Distention small bowel loops and large bowel loops with air suggestive of mild ileus. Large amount of fecal content. IMPRESSION: Hepatosplenomegaly. Large amount of fecal content throughout the colon Mild ileus Prominent uterus. Ultrasound examination of pelvis may be of value.
== END 2019-05-23 20:48 | disposition home or self-care (01) ==
LOC: ER 18:34
DX: K29.70 Gastritis, unspecified, without bleeding (principal); F41.9 Anxiety disorder, unspecified; F32.9 Major depressive disorder, single episode, unspecified; F20.9 Schizophrenia, unspecified; K21.9 Gastro-esophageal reflux disease without esophagitis; Z88.0 Allergy status to penicillin; Z88.1 Allergy status to other antibiotic agents; Z88.2 Allergy status to sulfonamides; Z88.7 Allergy status to serum and vaccine
CPT/HCPCS: 99284; 96372 ×2; 74176; 84484; 36415; 83605; 85007; 85025; 81001; 81025; 80053; 87040 ×2; Q0162; J1885; J2405